=== PATIENT | male | born 1990 | race Caucasian/White ===

== ENCOUNTER → 2020-12-31 | Outpatient (CLI) | payer BC ==
--- NOTE | 2020-12-31 16:54 | US ---
EXAMINATION TYPE: US thyroid st tissue head/neck DATE OF EXAM: 12/31/2020 COMPARISON: NONE CLINICAL HISTORY: E07.9 Disorder Thyroid, R13.10 Dysphagia. GLAND SIZE: Right Lobe: 5.4 x 1.6 x 1.5 cm Overall Parenchyma: homogenous Left Lobe: 4.5 x 1.4 x 1.3 cm Overall Parenchyma: homogeneous Isthmus Thickness: 0.3 cm NODULES RIGHT: # of nodules measured on right: 1 1. 1.0 X 0.7 x 0.8 cm, lower mid, complex , hypoechoic nodule, which is wider than tall, with smoo th margins, without echogenic foci. Prior size: no prior LEFT: # of nodules measured on left: 0 ISTHMUS: # of nodules measured in the isthmus: 0 Bilateral neck scanned, no evidence of lymphadenopathy. IMPRESSION: 1. Single right thyroid nodule is hypoechoic with complexity measuring 1 cm. Continued sonographic fo llow-up is recommended. 2017 ACR TI-RADS LEVEL: 4 *Highest TI-RADS level nodule reported
== END | disposition home or self-care (01) ==
LOC: RADUSWWP 15:41
PROVIDERS: ATTEND Family Medicine
DX: E04.1 Nontoxic single thyroid nodule (principal)
CPT/HCPCS: 76536

== ENCOUNTER 2021-01-20 12:58 | Day surgery (SDC) | payer BC ==
[2021-01-20] MEDS ORDERED: ALPRAZolam 0.5 MG TAB PO STA (13:23)
[2021-01-20 13:27] VITALS: RESP 18; TEMP 98.5
--- NOTE | 2021-01-20 14:52 | US ---
ULTRASOUND GUIDED FNA THYROID BIOPSY: CLINICAL HISTORY: Right thyroid nodule FINDINGS: The procedure was explained to the patient. The risks, complications, benefits and alternatives were discussed and any questions were answered. Informed consent was obtained. Patient was placed supin e on the ultrasound table and prepped and draped in the usual sterile fashion. Utilizing a 25 gauge needle, five passes were made into the requested right thyroid nodule. Patient was stable throughout the procedure. Pathology is pending. All elements of maximal barrier technique were utilized. IMPRESSION: 1. Successful ultrasound guided FNA thyroid biopsy.
[2021-01-20 16:48] VITALS: BP 129/90; PULSE 82
== END 2021-01-20 14:15 | disposition home or self-care (01) ==
LOC: RADPROMAIN 12:58
PROVIDERS: ATTEND Family Medicine
DX: E04.1 Nontoxic single thyroid nodule (principal)
CPT/HCPCS: 10005; 88173; 88305